=== PATIENT | male | born 1975 | race Hispanic/Latino ===

== ENCOUNTER 2018-01-27 08:11 | Emergency (ER) | payer BC, OTHER ==
[2018-01-27] MEDS ORDERED: HYDROCODONE/APAP 10/325 TAB ONE (08:41)
--- NOTE | 2018-01-27 09:31 | EDPHYS ---
Physician Documentation [facility] Name: Mike Briscoe Age: 42 yrs Sex: Male : 1975 Arrival Date: 01/27/2018 Time: 08:15 Bed 19 Private MD: None, None ED Physician Estevan Herbert HPI: 01/27 08:25 This 42 yrs old Male presents to ER via Unassigned with complaints of Shoulder jmm Pain. 08:25 The patient or guardian complains of an injury, pain. right shoulder. Onset: The jmm symptoms/episode began/occurred acutely, last night. Modifying factors: the symptoms are alleviated by remaining still, The symptoms are aggravated by movement. Associated signs and symptoms: Pertinent negatives: tingling. This is a 42 year old male that presents to the ED with right shoulder pain beginning last night after falling with his right arm extended. Complains of ongoing pain with difficulty moving his shoulder. The patient denies other injury. . Historical: - Allergies: 08:29 No Known Allergies; jl7 - Home Meds: 08:29 Lisinopril Oral [Active]; jl7 - PMHx: 08:29 Hypertension; jl7 - PSHx: 08:29 Hernia repair; jl7 - Immunization history:: Adult Immunizations not up to date. - Social history:: Smoking status: Patient/guardian denies using tobacco. - Ebola Screening: : No symptoms or risks identified at this time. ROS: 08:25 Constitutional: Negative for fever, chills, and weight loss. jmm 08:25 Constitutional: Positive for 08:25 MS/extremity: Positive for injury or acute deformity, pain. 08:25 All other systems are negative. Exam: 08:25 Head/Face: atraumatic. jmm 08:25 Constitutional: The patient appears in no acute distress, alert, awake. 08:25 Neck: ROM/movement: is normal. 08:25 Cardiovascular: Rate: normal. 08:25 Respiratory: the patient does not display signs of respiratory distress, Respirations: normal, Breath sounds: are clear throughout. 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 08:25 Skin: Appearance: Color: normal in color. 08:25 Neuro: Orientation: is normal, Mentation: is normal, Memory: is normal. 08:25 Psych: Behavior/mood is pleasant, cooperative. Vital Signs: 08:20 BP 170 / 95; Pulse 88; Resp 16 S; Temp 99(O); Pulse Ox 97% on R/A; Weight 108.86 kg 7 (R); Height 5 ft. 9 in. (175.26 cm) (R); Pain 8/10; 09:30 BP 160 / 89; Pulse 85; Resp 16; Pulse Ox 100% ; jl7 08:20 Body Mass Index 35.44 (108.86 kg, 175.26 cm) [facility] Procedures: 09:45 Splinting: Splint applied to right shoulder using sling, applied by nurse. Examined by shalom ne, post splint application: neurovascular intact, 2+ distal pulses palpable, brisk capillary refill noted, Patient tolerated well. MDM: 08:23 Patient medically screened. [facility] 09:29 Data reviewed: vital signs, nurses notes, radiologic studies, plain films. Counseling: shalom I had a detailed discussion with the patient and/or guardian regarding: the historical points, exam findings, and any diagnostic results supporting the discharge/admit diagnosis, the need for outpatient follow up, to return to the emergency department if symptoms worsen or persist or if there are any questions or concerns that arise at home. 01/27 08:24 Order name: Shoulder Right (2 View) XRAY; Complete Time: 09:36 [facility] 01/27 09:16 Order name: Sling; Complete Time: 10:00 [facility] Administered Medications: 08:44 Drug: [place] 10 mg-325 mg 1 tabs Route: PO; [facility] 10:00 Follow up: Response: No adverse reaction; Pain is decreased [facility] Disposition: 16:06 Co-signature as Attending Physician, Estevan Herbert MD Available for consultation at [facility] all times. . Disposition: 01/27/18 09:30 Discharged to Home. Impression: Other sprain of right shoulder joint. - Condition is Stable. - Discharge Instructions: Shoulder Pain. - Prescriptions for Tylenol- Codeine #3 300-30 mg Oral Tablet - take 1 tablet by ORAL route every 6 hours As needed; 12 tablet. - Medication Reconciliation Form, Thank You Letter, Antibiotic Education, Prescription Opioid Use, Work release form form. - Follow up: Mathieu Mason MD; When: 2 - 3 days; Reason: Continuance of care. Signatures: Dispatcher [employer] EDMS Harish Feliz PA PA jmm Leal, Jahala, RN RN jl7 Estevan Herbert MD MD ps1 Corrections: (The following items were deleted from the chart) 10:02 09:30 01/27/2018 09:30 Discharged to Home. Impression: Other sprain of right shoulder jl7 joint. Condition is Stable. Forms are Medication Reconciliation Form, Thank You Letter, Antibiotic Education, Prescription Opioid Use. Follow up: Mathieu Mason; When: 2 - 3 days; Reason: Continuance of care. shalom 16:45 16:44 Splinting: Splint applied to right shoulder using sling, applied by nurse. shalom Examined by me, post splint application: neurovascular intact, 2+ distal pulses palpable, brisk capillary refill noted, Patient tolerated well, shalom
--- NOTE | 2018-01-27 09:31 | ER ---
Nurse's Notes [facility] Name: Mike Briscoe Age: 42 yrs Sex: Male : 1975 Arrival Date: 01/27/2018 Time: 08:15 Bed 19 Private MD: None, None Diagnosis: Other sprain of right shoulder joint Presentation: 01/27 08:20 Presenting complaint: Patient states: Fell last night onto right shoulder, c/o pain and jl7 decreased ROM in right shoulder. Transition of care: patient was not received from another setting of care. Onset of symptoms was January 26, 2018. Risk Assessment: Do you want to hurt yourself or someone else? Patient reports no desire to harm self or others. Initial Sepsis Screen: Does the patient meet any 2 criteria? No. Patient's initial sepsis screen is negative. Does the patient have a suspected source of infection? No. Patient's initial sepsis screen is negative. Care prior to arrival: None. 08:20 Method Of Arrival: Ambulatory [facility] 08:20 Acuity: LIZBET 4 jl7 Triage Assessment: 08:20 General: Appears in no apparent distress. uncomfortable, Behavior is calm, cooperative, jl7 appropriate for age. Pain: Complains of pain in right shoulder Pain does not radiate. Pain currently is 8 out of 10 on a pain scale. Quality of pain is described as aching, Pain began 1 day ago. Is continuous. EENT: No signs and/or symptoms were reported regarding the EENT system. Neuro: Level of Consciousness is awake, alert, obeys commands, Oriented to person, place, time, situation. Cardiovascular: Patient's skin is warm and dry. Respiratory: Airway is patent Respiratory effort is even, unlabored, Respiratory pattern is regular, symmetrical. Derm: Skin is pink, warm \T\ dry. Musculoskeletal: Range of motion: limited in right shoulder. Historical: - Allergies: 08:29 No Known Allergies; jl7 - Home Meds: 08:29 Lisinopril Oral [Active]; jl7 - PMHx: 08:29 Hypertension; jl7 - PSHx: 08:29 Hernia repair; jl7 - Immunization history:: Adult Immunizations not up to date. - Social history:: Smoking status: Patient/guardian denies using tobacco. - Ebola Screening: : No symptoms or risks identified at this time. Screenin:20 Abuse screen: Denies threats or abuse. Denies injuries from another. Nutritional jl7 screening: No deficits noted. Tuberculosis screening: No symptoms or risk factors identified. Fall Risk None identified. Assessment: 08:20 General: See triage assessment. jl7 09:00 Reassessment: Patient and/or family updated on plan of care and expected duration. Pain jl7 level reassessed. Patient is alert, oriented x 3, equal unlabored respirations, skin warm/dry/pink. 09. 09:50 Reassessment: Patient is alert, oriented x 3, equal unlabored respirations, skin jl7 warm/dry/pink. Patient states feeling better. Patient states symptoms have improved. Vital Signs: 08:20 BP 170 / 95; Pulse 88; Resp 16 S; Temp 99(O); Pulse Ox 97% on R/A; Weight 108.86 kg jl7 (R); Height 5 ft. 9 in. (175.26 cm) (R); Pain 8/10; 09:30 BP 160 / 89; Pulse 85; Resp 16; Pulse Ox 100% ; jl7 08:20 Body Mass Index 35.44 (108.86 kg, 175.26 cm) jl7 ED Course: 08:15 Patient arrived in ED. mr 08:15 None, None is Private Physician. mr 08:18 Ethan Rajput, RENAE is Primary Nurse. jl7 08:19 Harish Feliz PA is PHCP. jmm 08:19 Estevan Herbert MD is Attending Physician. jmm 08:20 Arm band placed on right wrist. jl7 08:20 Patient has correct armband on for positive identification. Placed in gown. Bed in low jl7 position. Call light in reach. Side rails up X 1. Pulse ox on. NIBP on. 08:29 Triage completed. jl7 08:34 X-ray completed. Patient tolerated procedure well. jr1 08:35 Shoulder Right (2 View) XRAY In Process Unspecified. EDMS 09:30 Mathieu Mason MD is Referral Physician. jmm 10:01 No provider procedures requiring assistance completed. Patient did not have IV access jl7 during this emergency room visit. Administered Medications: 08:44 Drug: [place] 10 mg-325 mg 1 tabs Route: PO; jl7 10:00 Follow up: Response: No adverse reaction; Pain is decreased jl7 Outcome: 09:30 Discharge ordered by MD. rausch 10:00 Discharged to home ambulatory. jl7 10:00 Condition: stable 10:00 Discharge instructions given to patient, family, Instructed on discharge instructions, follow up and referral plans. medication usage, Demonstrated understanding of instructions, follow-up care, medications, Prescriptions given X 1. 10:02 Patient left the ED. jl7 Signatures: Dispatcher [employer] EDMS Harish Feliz PA PA jmm Rivera, Maria mr [place], Jennifer 1 Ethan Rajput, RENAE RN jl7
--- NOTE | 2018-01-27 09:34 | RAD REPORT ---
EXAM DESCRIPTION: Shoulder Right 2 View - 01/27/2018 8:40 am CLINICAL HISTORY: Shoulder pain COMPARISON: None. TECHNIQUE: Internal and external rotation views of the right shoulder were obtained. FINDINGS: There is no fracture or dislocation. AC joint is normal in appearance. No acute or suspici ous findings. IMPRESSION: Negative two-view right shoulder examination.
== END 2018-01-27 10:02 | disposition home or self-care (01) ==
LOC: ER 08:11
DX: S43.491A Other sprain of right shoulder joint, initial encounter (principal); W18.39XA Other fall on same level, initial encounter; Y93.9 Activity, unspecified; Y92.9 Unspecified place or not applicable; I10 Essential (primary) hypertension
CPT/HCPCS: 99284

== ENCOUNTER → 2023-07-28 | Emergency (ER) | payer BC, SELFPAY ==
[~2023-07-28] MED LIST: ASPIRIN 81 MG CHEWABLE TABLET ONE; LABETALOL 20 MG/4ML SYRINGE IV ONE; MORPHINE 4 MG/ML SYR ONE; NA CHLORIDE 0.9% 1,000 ML ONE
--- OUTSIDE RECORDS SUMMARY | 2023-07-28 20:01 | XMS REPORT | Continuity of Care Document ---
Author Name Unknown Address [address] [facility] [address] [place] [address] [facility] Address [address] [facility] 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 Attending Clinician Unavailable Gautam Gardner MD Attending Clinician [phone] GAUTAM GARDNER Attending Clinician Unavailable Wellington Chacon MD Attending Clinician Ilene Cabral Attending Clinician ILENE MENDEZ Attending Clinician Unavaila ble 2, [facility] Attending Clinician Unavailable Doctor Unassigned, [place] Attending Clinician U [place] Calderon Admitting Clinician Unavail rob Payers Payer Name Policy Type Policy Number Effective Date Expirati on Date Source [facility] [id number] 2021 00:00:00 [facility] C1 [id number] 2019 00:00:00 [facility] Problems Condition Name Condition Details Condition Category Status Onset Date Resolution Date Last Treatment Date Treating Clinician Comments Source Encounter for colorectal cancer screening Encounter for colorectal cancer screening Disease Active 2021-07 00:00: 00 Overview: Formattin g of this note might be different from the original. Added automatic ally from request for surgery [id number] [facility] Controlled type 2 diabetes mellitus without complicati on, without long-term current use of insulin Controlled type 2 diabetes mellitus without complicati on, without long-term current use of insulin Disease Active 2021-07 00:00: 00 [facility] Essential hypertensi on Essential hypertensi on Disease Active 2021-07 00:00: 00 [facility] Mixed hyperlipid emia Mixed hyperlipid emia Disease Active 2021-07 00:00: 00 [facility] Flexural psoriasis Flexural psoriasis Disease Active 2021-07 00:00: 00 [facility] Family history of colon cancer Family history of colon cancer Disease Active 2021-07 00:00: 00 [facility] Body mass index (BMI) of 30.0 to 30.9 in adult Body mass index (BMI) of 30.0 to 30.9 in adult Disease Active 2021-07 00:00: 00 [facility] [id number] Problem Active [facility] [id number] Problem Active [facility] [id number] Problem Active [facility] [id number] Problem Active [facility] [id number] Problem Active [facility] [id number] Problem Active [facility] Allergies, Adverse Reactions, Alerts Allergy Name Allergy Type Status Severity Reaction(s) Onset Date Inactive Date Treating Clinician Comments Source NO KNOWN ALLERGIE S Drug Class Active [facility] Social History Social Habit Start Date Stop Date Quantity Comments Source History of Tobacco Use Current Smoker [facility] Exposure to SARS-CoV-2 (event) 2022-05-21 00:00:00 2022-05-31 09:23:00 Not sure [facility] Sex Assigned At 1975 00:00:00 1975 00:00:00 [facility] Smoking Status Start Date Stop Date Source Tobacco smoking consumption unknown [facility] Current Smoker 2021-05-27 00:00:00 [facility] Medications Ordered Medication Name Filled Medication Name Start Date Stop Date Current Medication? Ordering Clinician Indication Dosage Frequency Signature (SIG) Comments Components Source ATORVASTATI N 40 mg tablet 11-19 00:00: 00 Yes [id number] TAKE 1 TABLET BY MOUTH EVERYDAY AT BEDTIME [facility] LISINOPRIL- HYDROCHLORO THIAZIDE 20-12.5 mg per tablet 08-31 00:00: 00 Yes [id number] 1{tbl} TAKE 1 TABLET BY MOUTH IN THE MORNING AND 1 TABLET IN THE EVENING. [facility] LISINOPRIL- HYDROCHLORO THIAZIDE 20-12.5 mg per tablet 08-31 00:00: 00 Yes [id number] 1{tbl} TAKE 1 TABLET BY MOUTH IN THE MORNING AND 1 TABLET IN THE EVENING. [facility] peg-electro lyte soln 236-22.74-6 .74 -5.86 gram solution 2021-07 00:00: 00 07-25 05:59 :00 No [id number] 4000mL Take 4,000 mL by mouth once now for 1 dose. [facility] sodium,pota ssium,mag sulfates 17.5-3.13-1 .6 gram 2021-07 00:00: 00 07-24 00:00 :00 No 117mL Take 117 mL by mouth once now for 1 dose. [facility] sodium,pota ssium,mag sulfates 17.5-3.13-1 .6 gram 2021-07 00:00: 00 07-18 05:59 :00 No 117mL Take 117 mL by mouth once now for 1 dose. [facility] APEXICON E 0.05 % Crea 2021-07 00:00: 00 Yes [id number] APPLY TO AFFECTED AREA TWICE A DAY [facility] APEXICON E 0.05 % Crea 2021-07 00:00: 00 Yes [id number] APPLY TO AFFECTED AREA TWICE A DAY [facility] APEXICON E 0.05 % Crea 2021-07 00:00: 00 Yes [id number] APPLY TO AFFECTED AREA TWICE A DAY [facility] APEXICON E 0.05 % Crea 2021-07 00:00: 00 Yes [id number] APPLY TO AFFECTED AREA TWICE A DAY [facility] APEXICON E 0.05 % Crea 2021-07 00:00: 00 Yes [id number] APPLY TO AFFECTED AREA TWICE A DAY [facility] APEXICON E 0.05 % Crea 2021-07 00:00: 00 Yes [id number] APPLY TO AFFECTED AREA TWICE A DAY [facility] APEXICON E 0.05 % Crea 2021-07 00:00: 00 Yes [id number] APPLY TO AFFECTED AREA TWICE A DAY [facility] APEXICON E 0.05 % Crea 2021-07 00:00: 00 Yes [id number] APPLY TO AFFECTED AREA TWICE A DAY [facility] APEXICON E 0.05 % Crea 2021-07 00:00: 00 Yes [id number] APPLY TO AFFECTED AREA TWICE A DAY [facility] APEXICON E 0.05 % Crea 2021-07 00:00: 00 Yes [id number] APPLY TO AFFECTED AREA TWICE A DAY [facility] SYNJARDY XR 25-1,000 mg TBp 2021-07 10:31: 05-31 00:00 :00 No Take by mouth daily. [facility] lisinopriL- hydrochloro thiazide 20-12.5 mg per tablet 2021-07 10:31: 54 05-31 00:00 :00 No 1{tbl} Take 1 tablet by mouth in the morning and 1 tablet in the evening. [facility] atorvastati n 40 mg tablet 2021-07 10:31: 54 05-31 00:00 :00 No 40mg Take 40 mg by mouth at bedtime. [facility] SYNJARDY XR 25-1,000 mg TBph 2021-07 10:31: 54 05-31 00:00 :00 No Take by mouth daily. [facility] lisinopriL- hydrochloro thiazide 20-12.5 mg per tablet 2021-07 10:31: 54 05-31 00:00 :00 No 1{tbl} Take 1 tablet by mouth in the morning and 1 tablet in the evening. [facility] atorvastati n 40 mg tablet 2021-07 10:31: 54 05-31 00:00 :00 No 40mg Take 40 mg by mouth at bedtime. [facility] atorvastati n 40 mg tablet 2021-07 00:00: 00 Yes [id number] 40mg Take 1 tablet by mouth at bedtime. [facility] lisinopriL- hydrochloro thiazide 20-12.5 mg per tablet 2021-07 00:00: 00 Yes [id number] 1{tbl} Take 1 tablet by mouth in the morning and 1 tablet in the evening. [facility] empaglifloz in-metformi n (SYNJARDY XR) 25-1,000 mg TBph 2021-07 00:00: 00 Yes [id number] 1{tbl} Take 1 tablet by mouth daily. [facility] atorvastati n 40 mg tablet 2021-07 00:00: 00 Yes [id number] 40mg Take 1 tablet by mouth at bedtime. [facility] lisinopriL- hydrochloro thiazide 20-12.5 mg per tablet 2021-07 00:00: 00 Yes [id number] 1{tbl} Take 1 tablet by mouth in the morning and 1 tablet in the evening. [facility] empaglifloz in-metformi n (SYNJARDY XR) 25-1,000 mg TBph 2021-07 00:00: 00 Yes [id number] 1{tbl} Take 1 tablet by mouth daily. [facility] atorvastati n 40 mg tablet 2021-07 00:00: 00 Yes [id number] 40mg Take 1 tablet by mouth at bedtime. [facility] lisinopriL- hydrochloro thiazide 20-12.5 mg per tablet 2021-07 00:00: 00 Yes [id number] 1{tbl} Take 1 tablet by mouth in the morning and 1 tablet in the evening. [facility] empaglifloz in-metformi n (SYNJARDY XR) 25-1,000 mg TBph 2021-07 00:00: 00 Yes [id number] 1{tbl} Take 1 tablet by mouth daily. [facility] atorvastati n 40 mg tablet 2021-07 00:00: 00 Yes [id number] 40mg Take 1 tablet by mouth at bedtime. [facility] lisinopriL- hydrochloro thiazide 20-12.5 mg per tablet 2021-07 00:00: 00 Yes [id number] 1{tbl} Take 1 tablet by mouth in the morning and 1 tablet in the evening. [facility] empaglifloz in-metformi n (SYNJARDY XR) 25-1,000 mg [facility] 2021-07 00:00: 00 Yes [id number] 1{tbl} Take 1 tablet by mouth daily. [facility] atorvastati n 40 mg tablet 2021-07 00:00: 00 Yes [id number] 40mg Take 1 tablet by mouth at bedtime. [facility] lisinopriL- hydrochloro thiazide 20-12.5 mg per tablet 2021-07 00:00: 00 Yes [id number] 1{tbl} Take 1 tablet by mouth in the morning and 1 tablet in the evening. [facility] empaglifloz in-metformi n (SYNJARDY XR) 25-1,000 mg TBp 2021-07 00:00: 00 Yes [id number] 1{tbl} Take 1 tablet by mouth daily. [facility] atorvastati n 40 mg tablet 2021-07 00:00: 00 Yes [id number] 40mg Take 1 tablet by mouth at bedtime. [facility] lisinopriL- hydrochloro thiazide 20-12.5 mg per tablet 2021-07 00:00: 00 Yes [id number] 1{tbl} Take 1 tablet by mouth in the morning and 1 tablet in the evening. [facility] empaglifloz in-metformi n (SYNJARDY XR) 25-1,000 mg TBph 2021-07 00:00: 00 Yes [id number] 1{tbl} Take 1 tablet by mouth daily. [facility] atorvastati n 40 mg tablet 2021-07 00:00: 00 Yes [id number] 40mg Take 1 tablet by mouth at bedtime. [facility] lisinopriL- hydrochloro thiazide 20-12.5 mg per tablet 2021-07 00:00: 00 Yes [id number] 1{tbl} Take 1 tablet by mouth in the morning and 1 tablet in the evening. [facility] empaglifloz in-metformi n (SYNJARDY XR) 25-1,000 mg TBph 2021-07 00:00: 00 Yes [id number] 1{tbl} Take 1 tablet by mouth daily. [facility] atorvastati n 40 mg tablet 2021-07 00:00: 00 Yes [id number] 40mg Take 1 tablet by mouth at bedtime. [facility] empaglifloz in-metformi n (SYNJARDY XR) 25-1,000 mg TBph 2021-07 00:00: 00 Yes [id number] 1{tbl} Take 1 tablet by mouth daily. [facility] empaglifloz in-metformi n (SYNJARDY XR) 25-1,000 mg TBph 2021-07 00:00: 00 Yes [id number] 1{tbl} Take 1 tablet by mouth daily. [facility] atorvastati n 40 mg tablet 2021-07 00:00: 00 Yes [id number] 40mg Take 1 tablet by mouth at bedtime. [facility] lisinopriL- hydrochloro thiazide 20-12.5 mg per tablet 2021-07 00:00: 00 Yes [id number] 1{tbl} Take 1 tablet by mouth in the morning and 1 tablet in the evening. [facility] empaglifloz in-metformi n (SYNJARDY XR) 25-1,000 mg TBph 2021-07 00:00: 00 Yes [id number] 1{tbl} Take 1 tablet by mouth daily. [facility] Diflorasone Diacetate-E molnt 0.05 % Crea 2021-07 00:00: 00 Yes [id number] Apply to area(s) 2 (two) times daily. [facility] atorvastati n 40 mg tablet 2021-07 00:00: 00 Yes [id number] 40mg Take 1 tablet by mouth at bedtime. [facility] lisinopriL- hydrochloro thiazide 20-12.5 mg per tablet 2021-07 00:00: 00 Yes [id number] 1{tbl} Take 1 tablet by mouth in the morning and 1 tablet in the evening. [facility] empaglifloz in-metformi n (SYNJARDY XR) 25-1,000 mg TBp 2021-07 00:00: 00 Yes [id number] 1{tbl} Take 1 tablet by mouth daily. [facility] Diflorasone Diacetate-E molnt 0.05 % Crea 2021-07 00:00: 00 Yes [id number] Apply to area(s) 2 (two) times daily. [facility] atorvastati n 40 mg tablet 2021-07 00:00: 00 Yes [id number] 40mg Take 1 tablet by mouth at bedtime. [facility] lisinopriL- hydrochloro thiazide 20-12.5 mg per tablet 2021-07 00:00: 00 Yes [id number] 1{tbl} Take 1 tablet by mouth in the morning and 1 tablet in the evening. [facility] empaglifloz in-metformi n (SYNJARDY XR) 25-1,000 mg TBp 2021-07 00:00: 00 Yes [id number] 1{tbl} Take 1 tablet by mouth daily. [facility] Diflorasone Diacetate-E molnt 0.05 % Crea 2021-07 00:00: 00 Yes [id number] Apply to area(s) 2 (two) times daily. [facility] atorvastati n 40 mg tablet 2021-07 00:00: 00 Yes [id number] 40mg Take 1 tablet by mouth at bedtime. [facility] lisinopriL- hydrochloro thiazide 20-12.5 mg per tablet 2021-07 00:00: 00 Yes [id number] 1{tbl} Take 1 tablet by mouth in the morning and 1 tablet in the evening. [facility] empaglifloz in-metformi n (SYNJARDY XR) 25-1,000 mg [facility] 2021-07 00:00: 00 Yes [id number] 1{tbl} Take 1 tablet by mouth daily. [facility] atorvastati n 40 mg tablet 2021-07 00:00: 00 11-19 00:00 :00 No [id number] 40mg Take 1 tablet by mouth at bedtime. [facility] lisinopriL- hydrochloro thiazide 20-12.5 mg per tablet 2021-07 00:00: 00 08-31 00:00 :00 No [id number] 1{tbl} Take 1 tablet by mouth in the morning and 1 tablet in the evening. [facility] Diflorasone Diacetate-E molnt 0.05 % Crea 2021-07 00:00: 00 06-08 00:00 :00 No [id number] Apply to area(s) 2 (two) times daily. [facility] Lisinopril Lisinopril 2019-0 03-18 00:00: 00 Yes Dante Lopes 1 tablet [facility] Hydrochloro thiazide Hydrochloro thiazide 2019-03-18 00:00: 00 Yes Dante Lopes 1 tablet in the morning [facility] Lisinopril- Hydrochloro thiazide Lisinopril- Hydrochloro thiazide 2019-0 10-26 00:00: 00 Yes Dante Lopes 1 tablet [facility] Atorvastati n Calcium Atorvastati n Calcium Yes Dante Lopes 1 tablet [facility] Triamcinolo ne Acetonide Triamcinolo ne Acetonide Yes Dante Lopes 1 applicatio n to affected area [facility] Atorvastati n Calcium Atorvastati n Calcium Yes Dante Lopes 1 tablet [facility] Lisinopril- Hydrochloro thiazide Lisinopril- Hydrochloro thiazide Yes Dante Lopes TAKE 1 TABLET BY MOUTH TWICE DAILY [facility] Lisinopril 20 MG Lisinopril 20 MG No 1{table t} QD Lisinopril 20 MG Lisinopril- hydroCHLORO thiazide 20-12.5 MG Lisinopril- hydroCHLORO thiazide 20-12.5 MG No 1{table t} BID Lisinopril -hydroCHLO ROthiazide 20-12.5 MG Atorvastati n Calcium 40 MG Atorvastati n Calcium 40 MG No 1{table t} QD Atorvastat in Calcium 40 MG Synjardy XR 25-1000 MG Synjardy XR 25-1000 MG No 1{table t_with_ breakfa st} QD Synjardy XR 25-1000 MG Lisinopril- hydroCHLORO thiazide 20-12.5 MG Lisinopril- hydroCHLORO thiazide 20-12.5 MG No 1{table t} BID Lisinopril -hydroCHLO ROthiazide 20-12.5 MG Lisinopril- hydroCHLORO thiazide 20-12.5 MG Lisinopril- hydroCHLORO thiazide 20-12.5 MG No 1{table t} BID Lisinopril -hydroCHLO ROthiazide 20-12.5 MG Synjardy XR 25-1000 MG Synjardy XR 25-1000 MG No 1{table t_with_ breakfa st} QD Synjardy XR 25-1000 MG Atorvastati n Calcium 40 MG Atorvastati n Calcium 40 MG No 1{table t} QD Atorvastat in Calcium 40 MG Triamcinolo ne Acetonide 0.1 % Triamcinolo ne Acetonide 0.1 % No 1{appli cation_ to_affe cted_ar ea} BID Triamcinol one Acetonide 0.1 % hydroCHLORO thiazide 12.5 MG hydroCHLORO thiazide 12.5 MG No 1{table t_in_ e_morni ng} QD hydroCHLOR Othiazide 12.5 MG Lisinopril 20 MG Lisinopril 20 MG No 1{table t} QD Lisinopril 20 MG Atorvastati n Calcium 40 MG Atorvastati n Calcium 40 MG No 1{table t} QD hydroCHLORO thiazide 12.5 MG hydroCHLORO thiazide 12.5 MG No 1{table t_in e_morni ng} QD Lisinopril- hydroCHLORO thiazide 20-12.5 MG Lisinopril- hydroCHLORO thiazide 20-12.5 MG No 1{table t} BID Synjardy XR 25-1000 MG Synjardy XR 25-1000 MG No 1{table t_with_ breakfa st} QD Lisinopril 20 MG Lisinopril 20 MG No 1{table t} QD Triamcinolo ne Acetonide 0.1 % Triamcinolo ne Acetonide 0.1 % No 1{appli cation_ to_affe cted_ar ea} BID Lisinopril- hydroCHLORO thiazide 20-12.5 MG Lisinopril- hydroCHLORO thiazide 20-12.5 MG No 1{table t} BID Hydrochloro thiazide 12.5 MG Hydrochloro thiazide 12.5 MG No 1{table t_in_ e_morni ng} QD Hydrochlor othiazide 12.5 MG Synjardy XR 25-1000 MG Synjardy XR 25-1000 MG No 1{table t_with_ breakfa st} QD Synjardy XR 25-1000 MG Atorvastati n Calcium 40 MG Atorvastati n Calcium 40 MG No 1{table t} QD Atorvastat in Calcium 40 MG Lisinopril 20 MG Lisinopril 20 MG No 1{table t} QD Lisinopril 20 MG Lisinopril- Hydrochloro thiazide 20-12.5 MG Lisinopril- Hydrochloro thiazide 20-12.5 MG No 1{table t} BID Lisinopril -Hydrochlo rothiazide 20-12.5 MG Triamcinolo ne Acetonide 0.1 % Triamcinolo ne Acetonide 0.1 % No 1{appli cation_ to_affe cted_ar ea} BID Triamcinol one Acetonide 0.1 % Lisinopril- Hydrochloro thiazide 20-12.5 MG Lisinopril- Hydrochloro thiazide 20-12.5 MG No 1{table t} BID Lisinopril -Hydrochlo rothiazide 20-12.5 MG Lisinopril 20 MG Lisinopril 20 MG No 1{table t} QD Lisinopril 20 MG Atorvastati n Calcium 40 MG Atorvastati n Calcium 40 MG No 1{table t} QD Atorvastat in Calcium 40 MG Triamcinolo ne Acetonide 0.1 % Triamcinolo ne Acetonide 0.1 % No 1{appli cation_ to_affe cted_ar ea} BID Triamcinol one Acetonide 0.1 % Synjardy XR 25-1000 MG Synjardy XR 25-1000 MG No 1{table t_with_ breakfa st} QD Synjardy XR 25-1000 MG Hydrochloro thiazide 12.5 MG Hydrochloro thiazide 12.5 MG No 1{table t_in_ e_morni ng} QD Hydrochlor othiazide 12.5 MG Lisinopril- Hydrochloro thiazide 20-12.5 MG Lisinopril- Hydrochloro thiazide 20-12.5 MG No 1{table t} BID Lisinopril -Hydrochlo rothiazide 20-12.5 MG Lisinopril- Hydrochloro thiazide 20-12.5 MG Lisinopril- Hydrochloro thiazide 20-12.5 MG No 1{table t} BID Lisinopril -Hydrochlo rothiazide 20-12.5 MG hydroCHLORO thiazide 12.5 MG hydroCHLORO thiazide 12.5 MG No 1{table t_in e_morni ng} QD hydroCHLOR Othiazide 12.5 MG Lisinopril- hydroCHLORO thiazide 20-12.5 MG Lisinopril- hydroCHLORO thiazide 20-12.5 MG No 1{table t} BID Lisinopril -hydroCHLO ROthiazide 20-12.5 MG Triamcinolo ne Acetonide 0.1 % Triamcinolo ne Acetonide 0.1 % No 1{appli cation_ to_affe cted_ar ea} BID Triamcinol one Acetonide 0.1 % Synjardy XR Synjardy XR 10-10 00:00 :00 No Dante Lopes 1 tablet with breakfast [facility] Vital Signs Vital Name Observation Time Observation Value Comments S ource Systolic blood pressure 2022-07-13 21:03:00 128 mm[Hg] [facility] Diastolic blood pressure 2022-07-13 21:03:00 94 mm[Hg] [facility] Heart rate 2022-07-13 21:03:00 82 /min [facility] Body temperature 2022-07-13 21:03:00 36.61 [facility] Respiratory rate 2022-07-13 21:03:00 18 /min [facility] Body height 2022-07-13 21:03:00 175.3 cm [facility] Body weight 2022-07-13 21:03:00 104.599 kg [facility] BMI 2022-07-13 21:03:00 34.05 kg/m2 [facility] Oxygen saturation in Arterial blood by Pulse oximetry 2022-07-13 21:03:00 98 /min [facility] Systolic blood pressure 2022-05-31 15:09:00 125 mm[Hg] [facility] Diastolic blood pressure 2022-05-31 15:09:00 88 mm[Hg] [facility] Heart rate 2022-05-31 15:05:00 81 /min [facility] Body temperature 2022-05-31 15:05:00 36.28 [facility] Respiratory rate 2022-05-31 15:05:00 18 /min [facility] Body height 2022-05-31 15:05:00 175.3 cm [facility] Body weight 2022-05-31 15:05:00 105.053 kg [facility] BMI 2022-05-31 15:05:00 34.20 kg/m2 [facility] Oxygen saturation in Arterial blood by Pulse oximetry 2022-05-31 15:05:00 98 /min [facility] height 2021-05-30 11:40:00 69 [in_i] Commo n [facility] weight 2021-05-30 11:40:00 227 [lb_av] Comm on [facility] temperature 2021-05-30 11:40:00 98 [degF] Comm on [facility] bmi 2021-05-30 11:40:00 33.52 kg/m2 Comm on [facility] blood pressure systolic 2021-05-30 11:40:00 130 mm[Hg] [facility] blood pressure diastolic 2021-05-30 11:40:00 76 mm[Hg] [facility] height 2021-02-27 16:30:00 69 [in_i] Commo n [facility] weight 2021-02-27 16:30:00 226.1 [lb_av] Co mmon [facility] temperature 2021-02-27 16:30:00 97.7 [degF] Com mon [facility] bmi 2021-02-27 16:30:00 33.39 kg/m2 Comm on [facility] oximetry 2021-02-27 16:30:00 98 % Commo n [facility] respiratory rate 2021-02-27 16:30:00 17 /min Common [facility] blood pressure systolic 2021-02-27 16:30:00 132 mm[Hg] [facility] blood pressure diastolic 2021-02-27 16:30:00 88 mm[Hg] [facility] height 2021-01-31 16:30:00 69 [in_i] Commo n [facility] weight 2021-01-31 16:30:00 230.6 [lb_av] Co mmon [facility] temperature 2021-01-31 16:30:00 97.0 [degF] Com [facility] bmi 2021-01-31 16:30:00 34.05 kg/m2 Comm on [facility] oximetry 2021-01-31 16:30:00 98 % Commo n [facility] respiratory rate 2021-01-31 16:30:00 16 /min [facility] blood pressure systolic 2021-01-31 16:30:00 138 mm[Hg] [facility] blood pressure diastolic 2021-01-31 16:30:00 84 mm[Hg] [facility] height 2020-11-15 16:30:00 69 [in_i] Commo n [facility] weight 2020-11-15 16:30:00 226.8 [lb_av] Co mmon [facility] temperature 2020-11-15 16:30:00 96.6 [degF] Com [facility] bmi 2020-11-15 16:30:00 33.49 kg/m2 Comm on [facility] oximetry 2020-11-15 16:30:00 97 % Commo n [facility] respiratory rate 2020-11-15 16:30:00 19 /min Common [facility] blood pressure systolic 2020-11-15 16:30:00 135 mm[Hg] [facility] blood pressure diastolic 2020-11-15 16:30:00 74 mm[Hg] [facility] height 2020-08-16 16:40:00 69 [in_i] Commo n [facility] weight 2020-08-16 16:40:00 230.9 [lb_av] Co mmon [facility] temperature 2020-08-16 16:40:00 96.6 [degF] Com mon [facility] bmi 2020-08-16 16:40:00 34.09 kg/m2 Comm on [facility] oximetry 2020-08-16 16:40:00 98 % Commo n [facility] respiratory rate 2020-08-16 16:40:00 18 /min [facility] blood pressure systolic 2020-08-16 16:40:00 137 mm[Hg] [facility] blood pressure diastolic 2020-08-16 16:40:00 85 mm[Hg] [facility] Procedures Procedure Date / Time Performed Performing Clinicia n Source COMP. METABOLIC PANEL (54034) 2022-05-31 15:59:00 Gautam Gardner [facility] LIPID PANEL (45626)(TOTAL CHOLESTEROL, TRIGLYCERIDES, HDL) 2022-05-31 15:59:00 Gautam Gardner [facility] HCV ANTIBODY 2022-05-31 15:59:00 Gautam Gardner [facility] FLU VACC (), 6 MO-64 YRS, .5ML, IM, QUAD (FLUCELVAX) 2022-05-31 15:31:50 Gautam Gardner [facility] ASSIGNMENT OF BENEFITS 2022-05-31 14:24:45 Docto r Unassigned, [place] [facility] Encounters Start Date/Time End Date/Time Encounter Type Admission Type Attending Clinicians Care Facility Care Department Encounter ID Source 2022-08-23 15:56:00 Outpatient [facility] [id number] [facility] 2021-08-23 13:33:24 [facility] [id number] [facility] 2021-08-23 13:12:20 [facility] [id number] [facility] 2021-08-23 12:54:14 [facility] [id number] [facility] 2021-08-23 12:23:01 [facility] [id number] [facility] 2021-08-23 11:55:28 [facility] [id number] [facility] 2021-08-23 11:16:26 [facility] [id number] [facility] 2021-08-23 11:13:55 [facility] [id number] [facility] 2023-03-09 08:58:43 2023-03-09 08:58:43 Outpatient [facility] [id number] Ezra Julian 2022-11-24 09:01:08 2022-11-24 09:01:08 Outpatient [facility] [id number] Ezra Julian 2022-11-17 00:00:00 2022-11-17 00:00:00 [facility]aut[facility] 1.2.840.114 350.1.13.10 4.2.7.2.686 [id number] [facility] 2022-08-31 16:00:00 2022-08-31 16:00:00 Outpatient GAUTAM ANDERSON [facility] [id number] [facility] 2022-08-31 00:00:00 2022-08-31 00:00:00 Gautam Fish [facility] 1.2.840.114 350.1.13.10 4.2.7.2.686 [id number] [facility] 2022-07-25 00:00:00 2022-07-25 00:00:00 Telephone Wellington Chacon [facility] 1..840.114 350.1.13.10 4.2.7.2.686 [id number] [facility] 2022-07-25 00:00:00 2022-07-25 00:00:00 Letter (Out) Wellington Chacon [facility] 1.2.840.114 350.1.13.10 4.2.7.2.686 [id number] [facility] 2022-07-17 00:00:00 2022-07-17 00:00:00 Prep For Surgery [place] Chacon [facility] 1.2.840.114 350.1.13.10 4.2.7.2.686 [id number] [facility] 2022-07-17 00:00:00 2022-07-17 00:00:00 Refopal [place] [facility] 1.2.840.114 350.1.13.10 4.2.7.2.686 [id number] [facility] 2022-07-13 15:15:00 2022-07-13 15:42:29 [facility] 1.2.840.114 350.1.13.10 4.2.7.2.686 [id number] [facility] 2022-07-13 15:15:00 2022-07-13 15:42:29 [facility] [id number] 2022-06-05 00:00:00 2022-06-05 00:00:00 Gautam [facility] 1.2.840.114 350.1.13.10 4.2.7.2.686 [id number] [facility] 2022-05-31 11:30:00 2022-05-31 11:45:00 Cio Visit 2, Adc Lab Gautam Gardner [facility] 1.2.840.114 350.1.13.10 4.2.7.2.686 [id number] [facility] 2022-05-31 10:00:00 2022-05-31 10:50:30 Outpatient R GAUTAM GARDNER [facility] [id number] [facility] 2022-05-31 10:00:00 2022-05-31 10:50:30 Office Visit Gautam Gardner [facility] 1.2.840.114 350.1.13.10 4.2.7.2.686 [id number] [facility] 2022-05-31 00:00:00 2022-05-31 00:00:00 Orders Only Doctor Unassigned, [place] [facility] 1.2.840.114 350.1.13.10 4.2.7.2.686 [id number] [facility] 2021-05-30 00:00:00 2021-05-30 00:00:00 OFFICE VISIT ESTAB PT LEVEL 4 STLMLC STLMLC [id number] [facility] 2021-02-27 00:00:00 2021-02-27 00:00:00 PREV VISIT EST AGE 40-64 STLMLC STLMLC [id number] [facility] 2021-01-31 00:00:00 2021-01-31 00:00:00 OFFICE VISIT EST PT LEVEL 3 STLMLC STLMLC [id number] [facility] 2020-11-15 00:00:00 2020-11-15 00:00:00 OFFICE VISIT ESTAB PT LEVEL 4 STLMLC STLMLC [id number] [facility] 2020-08-16 00:00:00 2020-08-16 00:00:00 OFFICE VISIT ESTAB PT LEVEL 4 STLMLC STLMLC [id number] [facility] 2020-05-16 00:00:00 2020-05-16 00:00:00 Outpatient STLMLC STLC [id number] [facility] 2020-05-11 00:00:00 2020-05-11 00:00:00 Outpatient STLMLC STLC [id number] [facility] 2020-03-16 16:44:00 2020-03-16 16:44:[address] [facility] [id number] [facility] 2020-02-15 16:45:00 2020-02-15 16:45:[address] [facility] [id number] [facility] 2020-01-21 11:28:00 2020-01-21 11:28:[address] [facility] [id number] [facility] 2019-10-27 16:30:00 2019-10-27 16:30:[address] [facility] [id number] [facility] 2019-10-20 08:24:00 2019-10-20 08:24:[address] [facility] [id number] [facility] 2019-10-16 16:05:00 2019-10-16 16:05:[address] [facility] [id number] [facility] 2019-07-13 16:30:00 2019-07-13 16:30:[address] [facility] [id number] [facility] Results Test Description Test Time Test Comments Results Result Co mments Source HEMOGLOBIN [id number] 02:38:44* Test Item Value Reference Range Interpretation Comme nts HEMOGLOBIN A1c (test code = 09137) 6.9 % 4.2-5.6 H [employer] GUIDELINES FOR HGB A1C: PREDIABETES/INCREASED RISK . . . . . . . 5.7-6.4% DIAGNOSIS OF DIABETES . . . . . . . . . >=6.5% WITH CONFIRMATION OR APPROPRIATE SYMPTOMS NOTE: ASSAY MAY BE AFFECTED BY HEMOGLOBINOPATHIES (SICKLE CELL ANEMIA, S-C DISEASE, OTHERS) OR ARTIFICIALLY LOWERED BY DECREASED RED CELL SURVIVAL (HEMOLYTIC ANEMIAS, BLOOD LOSS, ETC.). CONSIDER ALTERNATE TESTING OR LABORATORY CONSULTATION. COMPREHENSIVE METABOLIC [id number] 02:11:14* Test Item Value Reference Range Interpretation Comme nts GLUCOSE (test code = 7) 122 MG/DL 70-99 H BUN (test code = 2207) 12 MG/DL 6-20 CREATININE (test code = 2214) 0.67 MG/DL 0.80-1.40 L eGFR (2020 CKD-EPI) (test code = 61716) 116 ML/MIN/1.73 >60 CALC BUN/CREAT (test code = 2235) 18 RATIO 6-28 SODIUM (test code = 223) 138 MEQ/L 133-146 POTASSIUM (test code = 2228) 4.2 MEQ/L 3.5-5.4 CHLORIDE (test code = 2215) 102 MEQ/L 95-107 CARBON DIOXIDE (test code = 2206) 22 MEQ/L 19-31 CALCIUM (test code = 2209) 9.7 MG/DL 8.5-10.5 PROTEIN, TOTAL (test code = 2229) 7.5 G/DL 6.1-8.3 ALBUMIN (test code = 2201) 5.0 G/DL 3.5-5.2 CALC GLOBULIN (test code = 2240) 2.5 G/DL 1.9-3.7 CALC A/G RATIO (test code = 2234) 2.0 RATIO 1.0-2.6 BILIRUBIN, TOTAL (test code = 2207) 0.5 MG/DL See_Comment [Automated me ssage] The system which generated this result transmitted reference range: <=1.2. The reference range was not used to interpret this result as normal/abnormal. ALKALINE PHOSPHATASE (test code = 4) 75 U/L 40-118 AST (test code = 2218) 39 U/L 9-50 ALT (test code = 2219) 61 U/L 5-50 H LIPID [id number] 02:11:14* Test Item Value Reference Range Interpretation Comme nts CHOLESTEROL (test code = 2210) 153 MG/DL <200 TRIGLYCERIDES (test code = 2232) 142 MG/DL <150 HDL CHOLESTEROL (test code = 2220) 49 MG/DL >39 CALC LDL CHOL (test code = 2237) 80 MG/DL <100 NOTE: CALCULATED LDL IS BASED ON SANDEE-ESTRADA METHOD WHICHINCLUDES ADJUSTABLE TRIGLYCERIDE:VLDL CHOLESTEROL RATIO.THIS FACTOR VARIES BY MEASURED TRIGLYCERIDE AND NON-HDLCHOLESTEROL CONCENTRATIONS WITH INCREASED CALCULATED LDL SEENIN HIGHER TRIGLYCERIDE OR LOWER NON-HDL SPECIMENS. FOR MOREINFORMATION, SEE CLIENT ANNOUNCEMENT AT [email or web address] [email or web address] RATIO LDL/HDL (test code = 2238) 1.63 RATIO <3.55 [facility] has i mportant pathology staff changes effective 09/26/2022. New pathology staff will provide uninterrupted, excellent patient care and clinical consultation. See URL: [email or web address] UNLESS OTHERWISE INDICATED, ALL TESTING PERFORMED AT [facility] [address] [place] [address] LEAD SUSTAINABILITY SPECIALIST: ROSI BRUNO M.D. CLIA NUMBER [id number] [facility] [place]. [id number] HEMOGLOBIN [id number] 04:10:07* Test Item Value Reference Range Interpretation Comme [facility] HEMOGLOBIN A1c (test code = 09259) 7.1 % 4.2-5.6 H [employer] GUIDELINES FOR HGB A1C: PREDIABETES/INCREASED RISK . . . . . . . 5.7-6.4% DIAGNOSIS OF DIABETES . . . . . . . . . >=6.5% WITH CONFIRMATION OR APPROPRIATE SYMPTOMS NOTE: ASSAY MAY BE AFFECTED BY HEMOGLOBINOPATHIES (SICKLE CELL ANEMIA, S-C DISEASE, OTHERS) OR ARTIFICIALLY LOWERED BY DECREASED RED CELL SURVIVAL (HEMOLYTIC ANEMIAS, BLOOD LOSS, ETC.). CONSIDER ALTERNATE TESTING OR LABORATORY CONSULTATION. CBC W/AUTO DIFF WITH [id number] 03:01:40* Test Item Value Reference Range Interpretation Comme nts WBC (test code = 1001) 4.5 K/UL 3.5-11.0 RBC (test code = 1002) 5.17 M/UL 4.50-6.10 HEMOGLOBIN (test code = 1003) 14.8 G/DL 13.5-17.0 HEMATOCRIT (test code = 1004) 43.6 % 40.0-51.0 MCV (test code = 1005) 84.3 fL 80.0-99.0 MCH (test code = 1006) 28.6 PG 25.0-33.0 MCHC (test code = 1007) 33.9 G/DL 31.0-36.0 RDW (test code = 1038) 12.3 % 11.5-15.0 NEUTROPHILS (test code = 1008) 40.6 % LYMPHOCYTES (test code = 1010) 46.7 % MONOCYTES (test code = 1011) 6.6 % EOSINOPHILS (test code = 1012) 4.4 % BASOPHILS (test code = 1013) 1.5 % IMMATURE GRANULOCYTES (test code = 1036) 0.2 % NUCLEATED RBCS (test code = 1065) 0.0 /100 WBC'S See_Comment [Automated [employer]] The system which generated this result transmitted reference range: 0.0. The reference range was not used to interpret this result as normal/abnormal. PLATELET COUNT (test code = 1015) 278 K/UL 130-400 ABSOLUTE NEUTROPHILS (test code = 1066) 1.83 K/UL 1.50-7.50 ABSOLUTE LYMPHOCYTES (test code = 1067) 2.11 K/UL 1.00-4.00 ABSOLUTE MONOCYTES (test code = 1068) 0.30 K/UL 0.20-1.00 ABSOLUTE EOSINOPHILS (test code = 1040) 0.20 K/UL 0.00-0.50 ABSOLUTE BASOPHILS (test code = 1069) 0.07 K/UL 0.00-0.20 ABS IMMATURE GRANULOCYTES (test code = 1020) 0.01 K/UL 0.00-0.10 ABS NUCLEATED RBCS (test code = 74367) 0.00 K/UL 0.00-0.11 HCV [id number] 23:09:39* Test Item Value Reference Range Interpretation Comme nts HCV Ab (test code = 65588-4) Negative HCV Semi-Quantitative (test code = 35798-8) [facility] [id number] 23:09:39* Test Item Value Reference Range Interpretation Comme nts HCV Ab (test code = 73763-1) Negative HCV Semi-Quantitative (test code = 48675-7) [facility] (57691)(TOTAL CHOLESTEROL, TRIGLYCERIDES, HDL)2022-05-31 17:45:30* Test Item Value Reference Range Interpretation Comme nts CHOL (test code = 6069532994) 186 mg/dL 120-200 HDL (test code = 0579940535) 65 mg/dL See_Comment [Automated messa ge] The system which generated this result transmitted reference range: >=40. The reference range was not used to interpret this result as normal/abnormal. HDLC RATIO (test code = 9999014069) See_Comment [Automated messa ge] The system which generated this result transmitted reference range: <=5.0. The reference range was not used to interpret this result as normal/abnormal. TRIG (test code = 8826346348) 88 mg/dL 30-170 LDL CHOL (test code = 26850-9) 103 mg/dL See_Comment [Automated messa ge] The system which generated this result transmitted reference range: <=160. The reference range was not used to interpret this result as normal/abnormal. VLDL (test code = 6150578885) 18 mg/dL 5-60 Lab Interpretation (test code = 99016-5) Normal [facility] (85784)(TOTAL CHOLESTEROL, TRIGLYCERIDES, HDL)2022-05-31 17:45:30* Test Item Value Reference Range Interpretation Comme nts CHOL (test code = 4763782327) 186 mg/dL 120-200 HDL (test code = 7761472897) 65 mg/dL See_Comment [Automated messa ge] The system which generated this result transmitted reference range: >=40. The reference range was not used to interpret this result as normal/abnormal. HDLC RATIO (test code = 3601939525) See_Comment [Automated messa ge] The system which generated this result transmitted reference range: <=5.0. The reference range was not used to interpret this result as normal/abnormal. TRIG (test code = 4670256119) 88 mg/dL 30-170 LDL CHOL (test code = 22117-7) 103 mg/dL See_Comment [Automated messa ge] The system which generated this result transmitted reference range: <=160. The reference range was not used to interpret this result as normal/abnormal. VLDL (test code = 2611054425) 18 mg/dL 5-60 Lab Interpretation (test code = 19702-9) [facility] METABOLIC PANEL (28402)2022-05-31 17:45:25* Test Item Value Reference Range Interpretation Comme nts NA (test code = 0947286002) 137 mmol/L 135-145 K (test code = 1925951380) 4.8 mmol/L 3.5-5.0 CL (test code = 3812015236) 97 mmol/L 98-108 L CO2 TOTAL (test code = 4491348991) 28 mmol/L 23-31 AGAP (test code = 5141757363) 2-16 BUN (test code = 8147786005) 14 mg/dL 7-23 GLUCOSE (test code = 2529148096) 103 mg/dL 70-110 CREATININE (test code = 7457747262) 0.85 mg/dL 0.60-1.25 TOTAL BILI (test code = 8339941323) 0.9 mg/dL 0.1-1.1 CALCIUM (test code = 4182549693) 10.4 mg/dL 8.6-10.6 T PROTEIN (test code = 8071939656) 8.5 g/dL 6.3-8.2 H ALBUMIN (test code = 0985760749) 5.2 g/dL 3.5-5.0 H ALK PHOS (test code = 3866423413) 85 U/L 34-122 ALTv (test code = 1742-6) 69 U/L 5-50 H AST(SGOT) (test code = 9430277240) 48 U/L 13-40 H eGFR (test code = 6999983395) mL/min/1.73m2 KARISSA (test code = KARISSA) Association of Glomerular Filtration Rate (GFR) and Staging of Kidney Disease* + --+ --+ ------+| GFR (mL/min/1.73 m2) ?| With Kidney Damage ?| ?Without Kidney Damage+ --------+ --------+ +| ?>90 ?| ?Stage one ?| ? Normal ?+ ---+ ---+ -------+| ?60-89 ?| ?Stage two ?| ? Decreased GFR ? + --+ --+ ------+| ?30-59 ?| ?Stage three ?| ? Stage three ? + --+ --+ ------+| ?15-29 ?| ?Stage four ? | ? Stage four ?+ ---+ ---+ -------+| ?<15 (or dialysis) ? ?| ?Stage five ? | ? Stage five ?+ ---+ ---+ -------+ *Each stage assumes the associated GFR level has been in effect for at least three months. ?Stages 1 to 5, with or without kidney disease, indicate chronic kidney disease. Notes: Determination of stages one and two (with eGFR >59mL/min/1.73 m2) requires estimation of kidney damage for at least three months as defined by structural or functional abnormalities of the kidney, manifested by either:Pathological abnormalities or Markers of kidney damage (including abnormalities in the composition of the blood or urine or abnormalities in imaging tests). Lab Interpretation (test code = 61702-9) Abnormal [facility]. METABOLIC PANEL (22374)2022-05-31 17:45:25* Test Item Value Reference Range Interpretation Comme nts NA (test code = 7560839734) 137 mmol/L 135-145 K (test code = 3787759595) 4.8 mmol/L 3.5-5.0 CL (test code = 7044796928) 97 mmol/L 98-108 L CO2 TOTAL (test code = 2325744988) 28 mmol/L 23-31 AGAP (test code = 2814584085) 2-16 BUN (test code = 5189966114) 14 mg/dL 7-23 GLUCOSE (test code = 7758821075) 103 mg/dL 70-110 CREATININE (test code = 2100055786) 0.85 mg/dL 0.60-1.25 TOTAL BILI (test code = 4010909613) 0.9 mg/dL 0.1-1.1 CALCIUM (test code = 8033546400) 10.4 mg/dL 8.6-10.6 T PROTEIN (test code = 3086412401) 8.5 g/dL 6.3-8.2 H ALBUMIN (test code = 3121542685) 5.2 g/dL 3.5-5.0 H ALK PHOS (test code = 4136126838) 85 U/L 34-122 ALTv (test code = 1742-6) 69 U/L 5-50 H AST(SGOT) (test code = 4694889540) 48 U/L 13-40 H eGFR (test code = 9613166262) mL/min/1.73m2 KARISSA (test code = KARISSA) Association of Glomerular Filtration Rate (GFR) and Staging of Kidney Disease* + --+ --+ ------+| GFR (mL/min/1.73 m2) ?| With Kidney Damage ?| ?Without Kidney Damage+ --------+ --------+ +| ?>90 ?| ?Stage one ?| ? Normal ?+ ---+ ---+ -------+| ?60-89 ?| ?Stage two ?| ? Decreased GFR ? + --+ --+ ------+| ?30-59 ?| ?Stage three ?| ? Stage three ? + --+ --+ ------+| ?15-29 ?| ?Stage four ? | ? Stage four ?+ ---+ ---+ -------+| ?<15 (or dialysis) ? ?| ?Stage five ? | ? Stage five ?+ ---+ ---+ -------+ *Each stage assumes the associated GFR level has been in effect for at least three months. ?Stages 1 to 5, with or without kidney disease, indicate chronic kidney disease. Notes: Determination of stages one and two (with eGFR >59mL/min/1.73 m2) requires estimation of kidney damage for at least three months as defined by structural or functional abnormalities of the kidney, manifested by either:Pathological abnormalities or Markers of kidney damage (including abnormalities in the composition of the blood or urine or abnormalities in imaging tests). Lab Interpretation (test code = 48803-8) Abnormal [facility]"
[2023-07-28 21:03] LABS: Absolute Lymphocytes (CBC) 1.7 K/uL (0.7-4.9); Hematocrit 43.3 % (39.6-49.0); Lymphocytes % 28.1 % (15.3-44.8); MCV 84.7 fL (80-100); MPV 6.8 fL (7.6-11.3); Platelets 277 thou/uL (152-406); RBC Red Blood Cell Count 5.11 M/uL (4.33-5.43)
[2023-07-28 21:20] LABS: Potassium 3.2 mEq/L (3.5-5.1); Troponin High Sensitivity 12.6 pg/mL (<58.9)
--- NOTE | 2023-07-28 21:37 | RAD REPORT ---
EXAM DESCRIPTION: RAD - Chest Single View - 07/28/2023 9:30 pm CLINICAL HISTORY: CHEST PAIN Chest pain. COMPARISON: <Comparisons> FINDINGS: Portable technique limits examination quality. The lungs are underinflated resulting in vascular prominence. The heart is normal in size. No displac ed fractures. IMPRESSION: Underinflated lungs.
--- NOTE | 2023-07-28 22:28 | EDPHYS ---
Physician Documentation [facility] Name: Mike Briscoe Age: 47 yrs Sex: Male : 1975 Arrival Date: 07/28/2023 Time: 19:56 Bed 14 Private MD: ED Physician Javed Kline HPI: 07/28 20:11 This 47 yrs old Male presents to ER via Unassigned with complaints of Numbness ec2 Of Arm, High Blood Pressure. 20:11 Patient arrives today for evaluation of left-sided chest pain. Patient reports that the ec2 chest pain started approximately 11 hours ago. Patient reports that the pain has been constant without specific alleviating or exacerbating factors. Patient reports some radiation to left arm. Patient reports no nausea or vomiting, no difficulty breathing. Patient reports a history of hypertension, reports that he takes hydrochlorothiazide, lisinopril as well as atorvastatin for his hyperlipidemia, metformin for his diabetes. Patient reports no previous history of cardiac disease.. Historical: - Allergies: 20:12 No Known Allergies; tl4 - Home Meds: 20:12 Synjardy XR 25-1,000 mg oral tablet,immed \T\ ext release,biphasic 24hr 1 tab daily tl4 [Active]; atorvastatin 40 mg oral tablet 1 tab daily [Active]; lisinopril-hydrochlorothiazide 20-12.5 mg oral tablet 1 tab daily [Active]; - PMHx: 20:12 Hypertension; tl4 - Immunization history:: Adult Immunizations unknown. - Social history:: Smoking status: Patient reports the use of cigarette tobacco products, denies chronic smoking, but will smoke occasionally. ROS: 20:12 Constitutional: as per hpi ec2 Exam: 20:13 Constitutional: GEN: NAD Head: atraumatic Eyes: EOMI Ears: External ears are ec2 normal. CV: regular rate LUNGS: no respiratory distress ABD: non-distended SKIN: no evidence of rashes MSK: no evidence of trauma, no chest wall TTP, no deformity, no crepitus NEURO: moves all extremities equally Vital Signs: 20:10 BP 188 / 124; Pulse 101; Resp 20; Temp 98.7; Pulse Ox 98% on R/A; Weight 104.33 kg; tl4 Height 5 ft. 9 in. ; Pain 0/10; 20:30 BP 155 / 109; Pulse 97; Resp 17 S; Pulse Ox 100% on R/A; ha1 21:31 BP 152 / 98; Pulse 75; Resp 17 S; Pulse Ox 100% on R/A; ha1 22:30 BP 131 / 88; Pulse 69; Resp 17 S; Pulse Ox 98% on R/A; ha1 20:10 Body Mass Index 33.96 (104.33 kg, 175.26 cm) tl4 20:10 Pain Scale: Adult tl4 MDM: 20:04 Patient medically screened. ec2 20:13 Data reviewed: vital signs. ED course: Patient arrives today for evaluation of chest ec2 pain. Examination remarkable for well-appearing nontoxic dividual is otherwise in no acute distress. Will obtain lab work, EKG, chest x-ray, D-dimer and give the patient labetalol for his hypertension. Currently considering ACS, PE, lower suspicion for dissection.. 20:14 ED course: EKG independently reviewed and interpreted by me, shows sinus tachycardia, ec2 rate 104, no acute ST segment elevations, intervals are nonconcerning.. 21:24 ED course: Metabolic profile with slight hypokalemia noted. CBC is reassuring. Troponin ec2 within normal ranges. I do not feel he requires repeat troponin given the duration of his symptoms. . 21:45 ED course: Chest x-ray shows no acute intrathoracic process.. ec2 22:04 ED course: On reassessment patient with marked improvement in his symptoms. Currently ec2 pending D-dimer, called the lab who states this is in process.. 22:22 ED course: D-dimer within normal ranges.. ec2 22:26 ED course: I used shared decision-making with the patient regarding risk stratification ec2 and admission versus outpatient management and patient elected to return to home. Will discharge home have follow-up with primary care doctor and follow-up for further cardiac evaluation.. 07/28 20:09 Order name: Basic Metabolic Panel; Complete Time: 21:23 ec2 07/28 20:09 Order name: CBC with Diff; Complete Time: 21:23 ec2 07/28 20:09 Order name: Troponin HS; Complete Time: 21:23 ec2 07/28 20:09 Order name: D-Dimer; Complete Time: 22:22 ec2 07/28 20:09 Order name: XRAY Chest (1 view); Complete Time: 21:45 ec2 07/28 20:09 Order name: EKG; Complete Time: 20:10 ec2 07/28 20:09 Order name: Cardiac monitoring; Complete Time: 20:33 ec2 07/28 20:09 Order name: EKG - Nurse/Tech; Complete Time: 20:15 ec2 07/28 20:09 Order name: IV Saline Lock; Complete Time: 20:57 ec2 07/28 20:09 Order name: Labs collected and sent; Complete Time: 20:57 ec2 07/28 20:09 Order name: O2 Per Protocol; Complete Time: 20:27 ec2 07/28 20:09 Order name: O2 Sat Monitoring; Complete Time: 20:27 ec2 Administered Medications: 20:19 Drug: Aspirin PO Chewable Tablet 324 mg PO once; 81 mg tablets x 4 Route: PO; tl4 20:28 Follow up: Response: No adverse reaction tl4 21:00 Follow up: Response: No adverse reaction ha1 21:00 Drug: NS 0.9% IV 1000 ml IV at 1 bolus Per protocol; 1000 mL bolus Route: IV; Rate: 1 ha1 bolus; Site: right antecubital; 22:50 Follow up: Response: No adverse reaction; IV Status: Completed infusion; IV Intake: ha1 1000ml 21:00 Drug: Labetalol IV 10 mg IV at bolus once Route: IV; Rate: bolus; Site: right ha1 antecubital; 21:30 Follow up: Response: No adverse reaction; Blood pressure is lowered ha1 21:02 Drug: morphine IVP or IV 4 mg IVP once over 4 mins Route: IVP; Infused Over: 4 mins; ha1 Site: right antecubital; 21:30 Follow up: Response: No adverse reaction; Pain is decreased; RASS: Alert and Calm (0) ha1 Disposition Summary: 07/28/23 22:27 Discharge Ordered Notes: Location: Home ec2 Condition: Stable ec2 Diagnosis - Chest pain, unspecified ec2 Followup: ec2 - With: Private Physician - When: - Reason: Recheck today's complaints, Continuance of care Discharge Instructions: - Discharge Summary Sheet ec2 - Nonspecific Chest Pain, Adult ec2 Forms: - Medication Reconciliation Form ec2 - Thank You Letter ec2 - Antibiotic Education ec2 - Prescription Opioid Use ec2 - Patient Portal Instructions ec2 - Leadership Thank You Letter ec2 Signatures: Dispatcher [employer] Alison Morales RN RN ha1 Javed Kline MD MD ec2 Omid Worley tl4 Corrections: (The following items were deleted from the chart) 20:14 20:12 Constitutional: GEN: NAD Head: atraumatic Eyes: EOMI Ears: External ears are ec2 normal. CV: regular rate LUNGS: no respiratory distress ABD: non-distended, soft, nontender, no guarding, not rigid, left flank and CVA TTP SKIN: no evidence of rashes MSK: no evidence of trauma NEURO: moves all extremities equally ec2 20:15 20:12 Home Meds: lisinopril Oral; tl4 tl4 20:15 20:12 Home Meds: Clonidine Oral; tl4 tl4
--- NOTE | 2023-07-28 22:28 | ER ---
Nurse's Notes [facility] Name: Mike Briscoe Age: 47 yrs Sex: Male : 1975 Arrival Date: 07/28/2023 Time: 19:56 Bed 14 Private MD: Diagnosis: Chest pain, unspecified Presentation: 07/28 20:10 Chief complaint: Patient states: Pt c/o not feeling well and left arm numbness since tl4 0900 today. Pt developed left side chest pressure at approx 1500 that has since resolved. Pt denies any history of similar symptoms. Coronavirus screen: Vaccine status: Patient reports receiving the 2nd dose of the covid vaccine. At this time, the client does not indicate any symptoms associated with coronavirus-19. Ebola Screen: Patient negative for fever greater than or equal to 101.5 degrees Fahrenheit, and additional compatible Ebola Virus Disease symptoms Patient denies exposure to infectious person. Patient denies travel to an Ebola-affected area in the 21 days before illness onset. No symptoms or risks identified at this time. Initial Sepsis Screen: Does the patient meet any 2 criteria? No. Patient's initial sepsis screen is negative. Does the patient have a suspected source of infection? No. Patient's initial sepsis screen is negative. Risk Assessment: Do you want to hurt yourself or someone else? Patient reports no desire to harm self or others. Onset of symptoms was July 28, 2023. 20:10 Method Of Arrival: Ambulatory tl4 20:10 Acuity: LIZBET 2 tl4 Triage Assessment: 20:15 General: Appears in no apparent distress. Behavior is calm, cooperative. Pain: Denies tl4 pain. Historical: - Allergies: 20:12 No Known Allergies; tl4 - Home Meds: 20:12 Synjardy XR 25-1,000 mg oral tablet,immed \T\ ext release,biphasic 24hr 1 tab daily tl4 [Active]; atorvastatin 40 mg oral tablet 1 tab daily [Active]; lisinopril-hydrochlorothiazide 20-12.5 mg oral tablet 1 tab daily [Active]; - PMHx: 20:12 Hypertension; tl4 - Immunization history:: Adult Immunizations unknown. - Social history:: Smoking status: Patient reports the use of cigarette tobacco products, denies chronic smoking, but will smoke occasionally. Screenin:11 [facility] ED Fall Risk Assessment (Adult) History of falling in the last 3 months, ha1 including since admission No falls in past 3 months (0 pts) Confusion or Disorientation No (0 pts) Intoxicated or Sedated No (0 pts) Impaired Gait No (0 pts) Mobility Assist Device Used No (0 pt) Altered Elimination No (0 pt) Score/Fall Risk Level 0 - 2 = Low Risk Oriented to surroundings, Maintained a safe environment, Educated pt \T\ family on fall prevention, incl call for assistance when getting out of bed, Assessed \T\ reinforced patient's understanding of fall precautions, Hourly rounding (assess needs \T\ fall precautionary measures) done. Abuse screen: Denies threats or abuse. Denies injuries from another. Nutritional screening: No deficits noted. Tuberculosis screening: No symptoms or risk factors identified. Assessment: 20:15 General: Appears uncomfortable, Behavior is calm, cooperative. Pain: Complains of pain ha1 in chest Pain radiates to left arm Pain currently is 9 out of 10 on a pain scale. Quality of pain is described as pressure, tingling. Neuro: Level of Consciousness is awake, alert, obeys commands, Oriented to person, place, time, situation. Cardiovascular: Reports chest pain, Heart tones S1 S2 present Capillary refill < 3 seconds Patient's skin is warm and dry. Pulses are all present. Respiratory: Airway is patent Respiratory effort is even, unlabored, Respiratory pattern is regular, symmetrical. GI: Abdomen is round non-distended, Bowel sounds present X 4 quads. Reports nausea. Derm: Skin is pink, warm \T\ dry. Musculoskeletal: Circulation, motion, and sensation intact. Range of motion: intact in all extremities. 21:30 Reassessment: Patient and/or family updated on plan of care and expected duration. Pain ha1 level reassessed. Patient is alert, oriented x 3, equal unlabored respirations, skin warm/dry/pink. Patient denies pain at this time. Patient states feeling better. Patient states symptoms have improved. 22:30 Reassessment: Patient and/or family updated on plan of care and expected duration. Pain ha1 level reassessed. Patient is alert, oriented x 3, equal unlabored respirations, skin warm/dry/pink. Patient denies pain at this time. Vital Signs: 20:10 BP 188 / 124; Pulse 101; Resp 20; Temp 98.7; Pulse Ox 98% on R/A; Weight 104.33 kg; tl4 Height 5 ft. 9 in. ; Pain 0/10; 20:30 BP 155 / 109; Pulse 97; Resp 17 S; Pulse Ox 100% on R/A; ha1 21:31 BP 152 / 98; Pulse 75; Resp 17 S; Pulse Ox 100% on R/A; ha1 22:30 BP 131 / 88; Pulse 69; Resp 17 S; Pulse Ox 98% on R/A; ha1 20:10 Body Mass Index 33.96 (104.33 kg, 175.26 cm) tl4 20:10 Pain Scale: Adult tl4 ED Course: 20:00 Patient arrived in ED. tl4 20:01 Javed Kline MD is Attending Physician. ec2 20:12 Triage completed. tl4 20:15 Arm band placed on right wrist. tl4 20:15 Patient has correct armband on for positive identification. Placed in gown. Bed in low ha1 position. Call light in reach. Side rails up X 1. Adult w/ patient. 20:32 lAison Alberts, RN is Primary Nurse. ha1 20:35 Inserted saline lock: 22 gauge in right antecubital area, using aseptic technique. ha1 Blood collected. Inserted by Ny Medrano. 20:57 Basic Metabolic Panel Sent. ha1 20:57 CBC with Diff Sent. ha1 20:57 Troponin HS Sent. ha1 21:32 XRAY Chest (1 view) In Process Unspecified. EDMS 22:48 No provider procedures requiring assistance completed. IV discontinued, intact, ha1 bleeding controlled, No redness/swelling at site. Pressure dressing applied. 22:49 Provided Education on: following up with primary care . ha1 Administered Medications: 20:19 Drug: Aspirin PO Chewable Tablet 324 mg PO once; 81 mg tablets x 4 Route: PO; tl4 20:28 Follow up: Response: No adverse reaction tl4 21:00 Follow up: Response: No adverse reaction ha1 21:00 Drug: NS 0.9% IV 1000 ml IV at 1 bolus Per protocol; 1000 mL bolus Route: IV; Rate: 1 ha1 bolus; Site: right antecubital; 22:50 Follow up: Response: No adverse reaction; IV Status: Completed infusion; IV Intake: ha1 1000ml 21:00 Drug: Labetalol IV 10 mg IV at bolus once Route: IV; Rate: bolus; Site: right ha1 antecubital; 21:30 Follow up: Response: No adverse reaction; Blood pressure is lowered [facility] 21:02 Drug: morphine IVP or IV 4 mg IVP once over 4 mins Route: IVP; Infused Over: 4 mins; ha1 Site: right antecubital; 21:30 Follow up: Response: No adverse reaction; Pain is decreased; RASS: Alert and Calm (0) [facility] Medication: 21:11 VIS not applicable for this client. ha1 Intake: 22:50 IV: 1000ml; Total: 1000ml. 1 Outcome: 22:27 Discharge ordered by . ec2 22:48 Discharged to home ambulatory, with family, 1 22:48 Condition: stable 22:48 Discharge instructions given to patient, family, Instructed on discharge instructions, follow up and referral plans. Demonstrated understanding of instructions, follow-up care, 22:52 Patient left the ED. [facility] Signatures: Dispatcher [employer] Alison Morales RN RN 1 Javed Kline MD MD ec2 LogOmid dodd tl4 Corrections: (The following items were deleted from the chart) 20:15 20:12 Home Meds: lisinopril Oral; tl4 tl4 20:15 20:12 Home Meds: Clonidine Oral; tl4 tl4
[2023-07-28 23:35] VITALS: TEMP 98.7
[2023-07-28 23:47] VITALS: BP 131/88; O2SAT 98
== END ==
LOC: ER 19:56
DX: R07.9 Chest pain, unspecified (principal)
CPT/HCPCS: 36415; 71045; 80048; 84484; 85025; 85379; 93005; 96361; 96374; 96375; 99284; J7030